=== PATIENT | male | born 1955 | race African-American/Black ===

== ENCOUNTER 2017-02-28 17:55 | Inpatient (IN) | payer OTHER ==
[~2017-02-28] VITALS: Ht 170.2 cm; Wt 67.6 kg
--- NOTE | ~2017-02-28 | CO ---
Unit #: [id number] #: [id number] Patient: CHRISTIAN QUEVEDO [id number] [facility]. [place], [place] [address] [id number] I MR#: [id number] NAME: CHRISTIAN QUEVEDO ROOM: 55 Age: 61 Sex: M Admission Date: 02/28/2017 : 1955 Attending Physician: Julieth Snyder M.D. Primary Care Physician: Stas Cardoso M.D. CONSULTATION REPORT HISTORY OF PRESENT ILLNESS Mr. Quevedo is a 61-year-old white male. We were asked to see for COPD. He was hospitalized in the last month at [facility] for exacerbation of COPD and respiratory failure. He thinks he is maintained at home on Symbicort or Advair and albuterol. He is somewhat of a poor historian. Apparently, he has noted increasing shortness of breath over the 2 days prior to admission on the of this month. He has had a cough with white sputum production, which is thick, wheezing. On admission, chest x-ray showed no acute infiltrate. CT scan showed severe emphysematous changes bilaterally, it appeared to be that there was some scattered atelectasis, especially the right middle lobe. No consolidation was noted. Apparently, they did a 6 minute walk test on him yesterday and although his saturations remained greater than 92% on 4 L. He is quite dyspneic and we were asked to see the patient. As far as I know, he denies any chest pain. He had D-dimer done today which was 163, which was in the normal range. A CT scan PE protocol has been scheduled. PAST MEDICAL HISTORY Significant for COPD with chronic respiratory failure, maintained on home O2; history of colon cancer, status post hemicolectomy; essential hypertension; hyperlipidemia. He has had a MediPort placement. ALLERGIES Penicillin. HOME MEDICATIONS Norvasc, Ativan, prednisone, albuterol, either Advair or Symbicort, Lipitor, and aspirin. FAMILY HISTORY Negative for heart or lung disease. SOCIAL HISTORY Lives with brother. Smoked several cigarettes a day up until a week ago and stopped, has long history of smoking prior to that. No alcohol or illicit drugs. REVIEW OF SYSTEMS All negative except for those mentioned above, 10-point system. PHYSICAL EXAMINATION GENERAL: male, in no distress. VITAL SIGNS: Blood pressure is 124/75, pulse 93, respiratory rate 20, afebrile. Unit #: [id number] #: [id number] Patient: CHRISTIAN QUEVEDOENT: Normocephalic and atraumatic. Pupils are equal, round, and reactive. Sclerae nonicteric. Nasal passages patent. Posterior pharynx clear. Mucous membranes moist. Dentures. NECK: Supple. Trachea midline. No cervical or supraclavicular lymphadenopathy. LUNGS: Reveal diminished breath sounds. Prolonged expiratory phase. Mild expiratory wheeze. CARDIAC: Regular rate and rhythm. Could not appreciate murmur, rub, or gallop. ABDOMEN: Nontender, bowel sounds present. No hepatosplenomegaly. EXTREMITIES: Without clubbing, cyanosis, or edema. NEUROLOGIC: Awake, alert, and oriented x3. Cranial nerves intact. Muscle strength symmetric bilaterally. Affect, calm. DIAGNOSTIC STUDIES IMAGING STUDIES: Chest x-ray and CT scan reviewed as noted above. LABORATORY RESULTS: Arterial blood gases, pH 7.38, pCO2 of 60, PO2 of 79 on 4 L. Chemistries reviewed, unremarkable. Coagulation studies D-dimers 163. White blood cell count 05215, hematocrit 33.6, and platelet count normal. IMPRESSION 1. Chronic obstructive pulmonary disease exacerbation acute on chronic respiratory failure. 2. Compensated respiratory acidosis. 3. Mild anemia. 4. Tobacco abuse. PLAN I agree with inhaled bronchodilators, parenteral steroids, and supplemental oxygen. We should maximize outpatient treatment of obstructive airways disease with LAMA, LABA, and ICS combination. He may also benefit from noninvasive nocturnal ventilation with trilogy. He apparently is being evaluated for pulmonary thromboembolic disease with CT chest angio. His D-dimer is normal. We will cancel CT angio, as I think this is unlikely. He does have some scattered areas of atelectasis and possibly some mild hilar enlargement may consider repeat chest CT scan in 4 to 6 weeks for followup. Dictated by... Nathanael Coburn M.D. ERROL/lisa TD: 03/04/2017 13:02 JOB #: [id number] CC: Vasile Spaulding M.D. Unit #: [id number] #: [id number] Patient: CHRISTIAN QUEVEDO CONSULTATION REPORT Page 1 of 1 X Nathanael Coburn MD CONSULTATION REPORT
--- NOTE | ~2017-02-28 | CR72 ---
[facility] A Service of [facility] & [facility] RADIOLOGY TEXT RESULTS PATIENT: CHRISTIAN BROWNE LOCATION: [facility] 55- : 54 UNIT #: [id number] AGE: [address]: Julieth Snyder MD SEX: M ORDER DR: [id number] [facility] [address] [place], [place] [address] [id number] I MR#: [id number] Acc #: [id number] NAME: CHRISTIAN BROWNE : 1955 SEX: M STUDY DATE/TIME: 02/28/2017 18:31 UNIT: [facility] ROOM: [employer] STUDY DESCRIPTION: CR Chest Single View Portable Attending Physician: Sangeetha Campoverde M.D. Referring Physician: Stas Cardoso M.D. Ordering Physician: Zeyad Sweet M.D. Primary Care Physician: Stas Cardoso M.D. MEDICAL IMAGING REPORT This report is preliminary unless electronic signature is present EXAM Portable chest. HISTORY Shortness of air and cough x3 days, current smoker. COMPARISON 02/12/2017 FINDINGS Portable view of chest demonstrates pulmonary hyperinflation, hyperlucency, particularly within the mid and upper lung zones suggesting underlying emphysema. Small amount of bibasilar scarring or fibrosis. No infiltrates or effusions. Heart, mediastinum unremarkable. Indwelling venous access port noted over the right chest, distal tip lower SVC. No pneumothorax. Dictated by... China Cali M.D. THIS IS AN ELECTRONICALLY VERIFIED REPORT China Cali M.D. at 03/01/2017 2:34 PM JOZEF/dara TD: 03/01/2017 08:40 JOB #: [id number] MEDICAL IMAGING REPORT Page 1 of 1 COPY
--- NOTE | ~2017-02-28 | DS ---
Unit #: [id number] #: [id number] Patient: CHRISTIAN BROWNE [id number] [address] [id number] I MR#: [id number] NAME: CHRISTIAN BROWNE ROOM: 55 Age: 61 Sex: M Admission Date: 02/28/2017 : 1955 Discharge Date: 03/07/2017 Attending Physician: Ishan Rosado M.D. Referring Physician: Stas Cardoso M.D. Primary Care Physician: Dayan Primary Care Physician DISCHARGE SUMMARY DISCHARGE DIAGNOSES 1. Acute on chronic respiratory failure with hypercapnia and hypoxia. 2. Acute exacerbation of bronchitis. HOSPITAL COURSE The patient is a 61-year-old man who presented with acute onset of shortness of breath, wheezing and a deep productive cough. Chest x-ray showed no active infiltrate. During his admission, the patient received IV glucocorticoids, nebulized bronchodilators. He was continued on his home supplemental oxygen. His breathing improved, resolution of his wheezing. The patient's vitals are stable and the patient will be discharged home today. DISCHARGE MEDICATIONS 1. Albuterol inhaler, 1-2 puffs q.4 p.r.n. 2. Advair Diskus inhaler, 1 puff twice daily. 3. Spiriva inhaler, once daily. 4. Remeron 15 mg p.o. at bedtime. 5. Daliresp 500 mcg p.o. once daily. 6. Doxycycline 100 mg p.o. twice daily for 4 more days. 7. Prednisone taper. 8. Pneumococcal vaccination. DISCHARGE INSTRUCTIONS Patient to follow up with his primary care physician. Patient to follow up with his registered dietician, Dr. Norberto Coburn. Dictated by... Vasile Caraballo/parvez TD: 03/08/2017 08:39 JOB #: [id number] Unit #: [id number] #: [id number] Patient: CHRISTIAN BROWNE DISCHARGE SUMMARY Page 1 of 1 X X DISCHARGE SUMMARY
--- NOTE | ~2017-02-28 | CR63 ---
[facility] A Service of [facility] RADIOLOGY TEXT RESULTS PATIENT: CHRISTIAN BROWNE LOCATION: [facility] 55- : 54 UNIT #: [id number] AGE: [address]: Julieth Snyder MD SEX: M ORDER DR: [id number] [facility] [address] [facility] [place], [place] [address] [id number] I MR#: [id number] Acc #: [id number] NAME: CHRISTIAN BROWNE : 1955 SEX: M STUDY DATE/TIME: 03/01/2017 9:07 UNIT: [facility] ROOM: [facility] STUDY DESCRIPTION: CR Chest 2 View Attending Physician: Sangeetha Campoverde M.D. Referring Physician: Stas Cardoso M.D. Ordering Physician: Sangeetha Campoverde M.D. Primary Care Physician: Stas Cardoso M.D. MEDICAL IMAGING REPORT This report is preliminary unless electronic signature is present EXAM Chest x-ray 03/01/2017 HISTORY 61-year-old male hospital inpatient with 2-day history of shortness of air and cough. History of pulmonary emphysema. TECHNIQUE PA and lateral upright chest series. FINDINGS The examination shows advanced pulmonary emphysema. There is chronic linear scarring in the right lung base paralleling the diaphragm, and there is chronic fibrosis and volume loss in the right middle lobe, findings that were best seen on chest CT 02/12/2017. No acute abnormality is seen today. No visible airspace consolidation, pneumothorax or pleural effusion. Heart size normal. Central venous port catheter in good position. IMPRESSION 1. Pulmonary emphysema. 2. Chronic scarring and volume loss in the right middle lobe. Chronic linear scarring right lung base. 3. No definite active disease. No change since 02/12/2017. Dictated by... Mynor Matson M.D. THIS IS AN ELECTRONICALLY VERIFIED REPORT Mynor Matson M.D. at 03/01/2017 3:39 PM RGW/cmm [facility] A Service of [facility] RADIOLOGY TEXT RESULTS PATIENT: CHRISTIAN BROWNE LOCATION: [facility] 551-01 : 54 UNIT #: [id number] AGE: [address]: Julieth Snyder MD SEX: M ORDER DR: TD: 03/01/2017 11:25 JOB #: [id number] MEDICAL IMAGING REPORT Page 1 of 1 COPY
--- NOTE | ~2017-02-28 | HP ---
Unit #: [id number] #: [id number] Patient: CHRISTIAN BROWNE [id number] [address] [address] [id number] E MR#: [id number] NAME: CHRISTIAN BROWNE ROOM: Age: 61 Sex: M Admission Date: 02/28/2017 : 1955 Referring Physician: Stas Cardoso M.D. Primary Care Physician: Stas Cardoso M.D. HISTORY AND PHYSICAL CHIEF COMPLAINT COPD exacerbation with chronic respiratory failure. HISTORY OF PRESENT ILLNESS This 61-year-old male with COPD and hypertension is admitted for COPD exacerbation. The patient himself is only a fair historian. He states that he was well until two days prior to admission when he developed increasing shortness of breath, wheezing, and a deep cough production of white, thick sputum. He presented to this emergency department this evening where he was quite short of breath but did improve after Solu-Medrol and bronchodilators. Chest x-ray does not show an active infiltrate. The patient was last admitted to [facility] a month ago for COPD exacerbation I believe secondary to bronchitis. He was seen by the palliative care team and is followed by hospice. However, upon further questioning, the patient states that he wants everything done and wants to be a Full Code. PAST MEDICAL HISTORY 1. COPD with chronic respiratory failure on four liters of oxygen. 2. Colon cancer, status post hemicolectomy. 3. Essential hypertension. 4. Hyperlipidemia. 5. Mediport placement. ALLERGIES Possibly to penicillin. HOME MEDICATIONS Possibly Norvasc 10 mg daily, Ativan 0.5 mg p.r.n., prednisone, albuterol, Lipitor 40 mg daily, aspirin 81 mg daily, and Advair. Will contact patient's pharmacy. It appears he was also prescribed morphine given that he was a palliative care patient. FAMILY HISTORY Negative for heart or lung disease. SOCIAL HISTORY The patient lives with his brother. He smokes two cigarettes daily and does not drink alcohol. REVIEW OF SYSTEMS Notable for shortness of breath, productive cough, colon cancer, hypertension, hyperlipidemia, above-mentioned surgeries, COPD, tobacco Unit #: [id number] #: [id number] Patient: CHRISTIAN BROWNE use. All other systems were reviewed and otherwise negative. PHYSICAL EXAMINATION GENERAL: A mildly somnolent, but easily arousable 61-year-old male currently in no acute distress. VITAL SIGNS: Temperature 99.6, pulse 118, respirations 22, blood pressure 124/77, O2 saturation 98% on 4 liters of oxygen. HEENT: Eyes PERRLA. Extraocular muscles are intact. Pharynx is benign. NECK: Supple without adenopathy or thyromegaly. CHEST: Mild expiratory wheeze and bilateral rhonchi. CARDIAC: Normal S1 and S2 without definite murmur. ABDOMEN: Bowel sounds are present. No hepatosplenomegaly, tenderness, or masses. EXTREMITIES: Without clubbing, cyanosis, or edema. Pedal pulses are diminished. NEUROLOGIC: Patient is somnolent, but arousable. His cranial nerves are intact. He has equal strength throughout. DIAGNOSTIC STUDIES ADMISSION LABORATORY: Hematocrit 37, white blood count 16.1, normal platelet count. SMA-12 is normal. Lactic acid, BNP, and cardiac markers are normal. ABG with pH of 7.38, PCO2 of 60, PO2 of 79, and O2 saturation 92.6% on 4 liters of oxygen. IMAGING: Chest x-ray shows COPD, fibrosis versus scarring. CARDIOLOGY: EKG shows sinus tachycardia, rate 112, left axis deviation. ASSESSMENT 1. Chronic obstructive pulmonary disease exacerbation with chronic hypercapnic, hypoxic respiratory failure likely precipitated by bronchitis. Patient is followed by hospice but states that he wants to be a Full Code. 2. Essential hypertension. 3. Status post hemicolectomy for colon cancer. 4. Hyperlipidemia. PLANS 1. Steroids, doxycycline, DuoNebs, Advair, and repeat chest x-ray in the morning. 2. DVT and gastritis prophylaxis. 3. The patient is a Full Code. Because of that, I will decrease his sedating medicines given that he has chronic respiratory failure. 1. Dictated by Sangeetha Campoverde M.D. AML/vidhi TD: 02/28/2017 21:11 JOB #: [id number] Unit #: [id number] #: [id number] Patient: CHRISTIAN BROWNE HISTORY AND PHYSICAL Page 1 of 1 X Sangeetha Campoverde MD X HISTORY AND PHYSICAL
--- NOTE | ~2017-02-28 | CT57 ---
[facility] A Service of [facility] RADIOLOGY TEXT RESULTS PATIENT: CHRISTIAN BROWNE LOCATION: [facility] 551-01 : 54 UNIT #: [id number] AGE: [address]: Julieth Snyder MD SEX: M ORDER DR: [id number] [facility]. [place], [place] [address] [id number] I MR#: [id number] Acc #: [id number] NAME: CHRISTIAN BROWNE : 1955 SEX: M STUDY DATE/TIME: 03/01/2017 14:08 UNIT: [facility] ROOM: [facility] STUDY DESCRIPTION: CT Chest Wo Cont Attending Physician: Julieth Snyder M.D. Referring Physician: Stas Cardoso M.D. Ordering Physician: Julieth Snyder M.D. Primary Care Physician: Stas Cardoso M.D. MEDICAL IMAGING REPORT This report is preliminary unless electronic signature is present EXAM CT chest without contrast HISTORY Hypoxia. Respiratory failure. Shortness of air. Symptoms for 3 days. Chest pain. TECHNIQUE This CT exam was performed with one or more of the following radiation dose reduction techniques: automatic exposure control, adjustment of mA and/or kV according to patient size, and iterative reconstruction. FINDINGS CT chest without contrast demonstrates severe bilateral emphysema, primarily in the upper lungs, and camx-ia-iuqbqzma diffuse bilateral chronic interstitial scarring. Mild subsegmental atelectasis in the right middle lobe and lingula. Mild dilatation of the ascending thoracic aorta measuring 2.8 cm in diameter is similar to CT 02/12/2017. No adenopathy. Calcified right adrenal gland is again incidentally noted. No pleural effusions. No pericardial thickening or effusion. IMPRESSION 1. No evidence of active disease in the chest. 2. Advanced bilateral emphysema, primarily in the bilateral upper lobes. 3. Mild multifocal incidental subsegmental atelectasis in the mid and lower lungs. 4. No adenopathy. 5. Stable mild dilatation of the ascending thoracic aorta measuring 3.8 cm in diameter. Dictated by... [facility] A Service of [facility] RADIOLOGY TEXT RESULTS PATIENT: CHRISTIAN BROWNE LOCATION: [facility] 551-01 : 53 UNIT #: [id number] AGE: [address]: Julieth Snyder MD SEX: M ORDER DR: Michael Miller M.D. THIS IS AN ELECTRONICALLY VERIFIED REPORT Michael Miller M.D. at 03/02/2017 2:15 PM DFL/pcl TD: 03/02/2017 04:02 JOB #: [id number] MEDICAL IMAGING REPORT Page 1 of 1 COPY
--- NOTE | ~2017-02-28 | EKG ---
PATIENT: CHRISTIAN BROWNE UNIT #: [id number] Ventricular Rate: 112 BPM Atrial Rate: 112 BPM P-R Interval: 138 ms QRS Duration: 88 ms Q-T Interval: 328 ms QTC Calculation(Bezet): 447 ms P Marathon: 83 degrees Calculated R Marathon: -33 degrees Calculated T Marathon: 66 degrees Diagnosis Line: Sinus tachycardia Diagnosis Line: Possible Left atrial enlargement Diagnosis Line: Left axis deviation Diagnosis Line: Abnormal ECG Diagnosis Line: No previous ECGs available Diagnosis Line: Confirmed by LOUIE TINAJERO MD ([id number]) on Diagnosis Line: 03/02/2017 11:31:54 AM INTERPRETING MD: LIOR MEZA
[2017-02-28] MEDS ORDERED: ATIVAN0.5 MG PO (18:16)
[2017-02-28] MEDS ORDERED: NORVASC10 MG PO (18:16)
[2017-02-28] MEDS ORDERED: PREDNISONE10 MG PO (18:17)
[2017-02-28] MEDS ORDERED: ADVAIR 250-501 EAC1 INH (18:17)
[2017-02-28] MEDS ORDERED: ALBUTEROL2.5 MG/3 M (18:17)
[2017-02-28] MEDS ORDERED: ASPIRIN EC81 M1 PO (18:17)
[2017-02-28] MEDS ORDERED: LIPITOR40 MG PO (18:17)
[2017-02-28 18:37] LABS: ARTERIAL BLD GAS O2 SATURATION 92.6 % (90.0-100.0); ARTERIAL BLOOD GAS CARBOXY HB 3.1 %sat (0.0-9.0); ARTERIAL BLOOD GAS HCO3 36.2 mmol/L; ARTERIAL BLOOD GAS pH 7.385 (7.350-7.450)
[2017-02-28 18:38] LABS: ARTERIAL BLOOD GAS ALLEN TEST NORMAL; ARTERIAL BLOOD GAS PCO2 60.5 mmHg (35.0-45.0); ARTERIAL BLOOD GAS PO2 79.4 mmHg (80.0-100); ARTERIAL DRAW? YES
[2017-02-28 18:39] LABS: ARTERIAL BLOOD GAS ART SITE LEFT RADIAL; ARTERIAL BLOOD GAS DELIVERY NASAL CANNULA
[2017-02-28 18:53] LABS: BASOPHIL# 0.1 X10e3 (0-0.3); BASOPHIL% 0.7 % (0-2.5); EOSINOPHIL# 0.3 X10e3 (0-0.7); EOSINOPHIL% 1.7 % (0.0-7.0); HEMOGLOBIN 11.9 gm/dL (13.0-16.0); LYMPHOCYTE# 0.8 X10e3 (1.0-3.5); LYMPHOCYTE% 4.8 % (17.0-45.0); MEAN CELL VOLUME 91.6 FL (83-96); MEAN CORPUSCULAR HEMOGLOBIN 29.5 PG (28-34); MEAN CORPUSCULAR HGB CONC 32.3 g/dL (30-36); MEAN PLATELET VOLUME 7.6 FL (6.5-11.5); MONOCYTE# 0.9 X10e3 (0-1.0); MONOCYTE% 5.7 % (3.0-12.0); NEUTROPHIL% 87.1 % (40-75); PLATELET COUNT 341 X10e3 (140-420); RED BLOOD COUNT 4.05 X10e (3.90-5.60); RED CELL DISTRIBUTION WIDTH 14.9 % (11.0-15.5); WHITE BLOOD COUNT 16.1 X10e3 (4.0-10.5)
[2017-02-28 18:55] LABS: POC - CKMB 1.5 ng/mL (0.0-7.9); POC - TROPONIN <0.05 ng/mL (<=0.05)
[2017-02-28 18:58] LABS: ALBUMIN SERUM 3.7 g/dL (3.5-5.0); BILIRUBIN,TOTAL 0.6 mg/dL (0.2-2.0); BUN/CREATININE RATIO 15.71; CALCIUM SERUM 8.4 mg/dL (8.4-10.2); CREATININE SERUM 0.7 mg/dL (0.6-1.4); GLOM FILT RATE Estimated 101.2 mL/min (>60); POTASSIUM 3.8 mmol/L (3.5-5.1); PROTEIN TOTAL SERUM 6.8 g/dL (6.0-8.3)
[2017-02-28 19:02] LABS: DIFF IND YES
[2017-02-28 19:22] LABS: PLATELET ESTIMATE NORMAL (NORMAL)
[2017-02-28 19:23] LABS: ANISOCYTOSIS SL
[2017-03-01 09:08] LABS: BASOPHIL% 0.1 % (0-2.5); HEMATOCRIT 34.2 % (38.0-50.0); HEMOGLOBIN 10.7 gm/dL (13.0-16.0); LYMPHOCYTE# 0.6 X10e3 (1.0-3.5); LYMPHOCYTE% 4.5 % (17.0-45.0); MEAN CELL VOLUME 92.1 FL (83-96); MEAN CORPUSCULAR HEMOGLOBIN 28.8 PG (28-34); MEAN CORPUSCULAR HGB CONC 31.2 g/dL (30-36); MEAN PLATELET VOLUME 7.6 FL (6.5-11.5); MONOCYTE# 0.4 X10e3 (0-1.0); MONOCYTE% 2.7 % (3.0-12.0); NEUTROPHIL# 12.3 X10e3 (1.5-7.1); NEUTROPHIL% 92.7 % (40-75); PLATELET COUNT 355 X10e3 (140-420); RED BLOOD COUNT 3.71 X10e (3.90-5.60); RED CELL DISTRIBUTION WIDTH 14.7 % (11.0-15.5); WHITE BLOOD COUNT 13.3 X10e3 (4.0-10.5)
[2017-03-01 09:09] LABS: DIFF IND NO
[2017-03-01 09:37] LABS: BUN/CREATININE RATIO 16.66; CALCIUM SERUM 8.4 mg/dL (8.4-10.2); CREATININE SERUM 0.6 mg/dL (0.6-1.4); GLOM FILT RATE Estimated 124.9 mL/min (>60); POTASSIUM 4.1 mmol/L (3.5-5.1)
[2017-03-02 06:50] LABS: HEMATOCRIT 31.8 % (38.0-50.0); HEMOGLOBIN 10.1 gm/dL (13.0-16.0); MEAN CELL VOLUME 91.6 FL (83-96); MEAN CORPUSCULAR HGB CONC 31.7 g/dL (30-36); MEAN PLATELET VOLUME 7.5 FL (6.5-11.5); RED BLOOD COUNT 3.48 X10e (3.90-5.60); RED CELL DISTRIBUTION WIDTH 14.6 % (11.0-15.5); WHITE BLOOD COUNT 16.3 X10e3 (4.0-10.5)
[2017-03-02 07:27] LABS: CALCIUM SERUM 8.3 mg/dL (8.4-10.2); CREATININE SERUM 0.5 mg/dL (0.6-1.4); GLOM FILT RATE Estimated 134.7 mL/min (>60)
[2017-03-03 06:01] LABS: BUN/CREATININE RATIO 42.5; CALCIUM SERUM 8.6 mg/dL (8.4-10.2); CREATININE SERUM 0.4 mg/dL (0.6-1.4); GLOM FILT RATE Estimated 147.6 mL/min (>60)
[2017-03-03 06:11] LABS: HEMATOCRIT 32.3 % (38.0-50.0); HEMOGLOBIN 10.4 gm/dL (13.0-16.0); MEAN CELL VOLUME 91.2 FL (83-96); MEAN CORPUSCULAR HEMOGLOBIN 29.4 PG (28-34); MEAN CORPUSCULAR HGB CONC 32.2 g/dL (30-36); MEAN PLATELET VOLUME 7.6 FL (6.5-11.5); RED BLOOD COUNT 3.55 X10e (3.90-5.60); WHITE BLOOD COUNT 15.7 X10e3 (4.0-10.5)
[2017-03-04 05:36] LABS: HEMATOCRIT 33.6 % (38.0-50.0); HEMOGLOBIN 10.8 gm/dL (13.0-16.0); MEAN CELL VOLUME 91.2 FL (83-96); MEAN CORPUSCULAR HEMOGLOBIN 29.4 PG (28-34); MEAN CORPUSCULAR HGB CONC 32.2 g/dL (30-36); MEAN PLATELET VOLUME 7.5 FL (6.5-11.5); RED BLOOD COUNT 3.69 X10e (3.90-5.60); RED CELL DISTRIBUTION WIDTH 14.4 % (11.0-15.5); WHITE BLOOD COUNT 14.6 X10e3 (4.0-10.5)
[2017-03-04 06:08] LABS: CALCIUM SERUM 8.4 mg/dL (8.4-10.2); CREATININE SERUM 0.5 mg/dL (0.6-1.4); GLOM FILT RATE Estimated 134.7 mL/min (>60); POTASSIUM 4.5 mmol/L (3.5-5.1)
[2017-03-04 11:03] LABS: CK TOTAL 34 IU/L (36-174)
[2017-03-04 17:18] LABS: CK TOTAL 35 IU/L (36-174)
[2017-03-07] MEDS ORDERED: DALIRESP500 MCG PO (12:22)
[2017-03-07] MEDS ORDERED: REMERON15 MG PO (12:23)
[2017-03-07] MEDS ORDERED: PREDNISONE10 M1 PO (12:24)
[2017-03-07] MEDS ORDERED: ALBUTEROL17 GM INH (12:25)
[2017-03-07] MEDS ORDERED: SPIRIVA18 MCG INH (12:25)
== END 2017-03-07 15:29 | disposition home or self-care (01) | DRG 189 ==
LOC: CED 17:55 → C5B 21:00 → CEDOF 21:00 → C5B 21:29 → CED 21:29 → CEDOF 21:29 → C5B 03-01 00:14 → CEDOF 03-01 00:14 → C5B 03-01 12:52
PROVIDERS: Emergency Medicine; Family Medicine; Internal Medicine
DX: J96.21 Acute and chronic respiratory failure with hypoxia (principal); E87.2 Acidosis; Z99.81 Dependence on supplemental oxygen; J44.0 Chronic obstructive pulmonary disease with (acute) lower respiratory infection; J44.1 Chronic obstructive pulmonary disease with (acute) exacerbation; J96.22 Acute and chronic respiratory failure with hypercapnia; Z85.038 Personal history of other malignant neoplasm of large intestine; I10 Essential (primary) hypertension; E78.5 Hyperlipidemia, unspecified; Z88.0 Allergy status to penicillin; F17.210 Nicotine dependence, cigarettes, uncomplicated; D64.9 Anemia, unspecified; J20.9 Acute bronchitis, unspecified
CPT/HCPCS: 36600; 71010; 71020; 71250; 80048; 80053; 82550; 82553; 82803; 82947; 83036; 83605; 83880; 84484; 85025; 85027; 85379; 87040; 93005; 93306; 94640; 94664; 94760; 96361; 96374; 97161; 97165; 99291; G8978-GP; G8979-GP; G8980-GP; G8987-GO; G8988-GO; G8989-GO; J0696; J1642; J1650; J2920; J2930